=== PATIENT | female | born 1945 | race Caucasian/White ===

== ENCOUNTER 2021-01-23 18:29 | Emergency (ER) | payer MEDICARE, OTHER ==
[~2021-01-23] VITALS: Ht 170.2 cm; Wt 78.0 kg
[2021-01-23 18:55] VITALS: BP 66/42
--- NOTE | 2021-01-23 20:00 | NUR ---
[employer] [facility] [employer] called per protocol. 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 forgot to take pt's wallet so it will go to the home with pt.
== END 2021-01-23 21:24 ==
LOC: ER 18:30
DX: R10.9 Unspecified abdominal pain (principal); R40.20 Unspecified coma; R06.81 Apnea, not elsewhere classified
CPT/HCPCS: 93005; 99285